=== PATIENT | male | born 1980 | race Caucasian/White ===

== ENCOUNTER 2017-06-03 11:53 | Emergency (ER) | payer BC ==
[2017-06-03 12:21] VITALS: BP 139/79
--- NOTE | 2017-06-03 12:56 | UC ---
[facility] HPI - History of Current Complaint Chief Complaint: UCDentalProblem Stated Complaint: DENTAL PAIN Time Seen by Provider: 06/03/17 12:48 - Allergies/Home Medications Allergies/Adverse Reactions: Allergies Allergy/AdvReac Type Severity Reaction Status Date / Time No Known Allergies Allergy Verified 06/03/17 12:21 Home Medications: Home Medications Omeprazole CAP* [Prilosec CAP* 20 MG] 20 mg PO DAILY 06/03/17 [History Confirmed 06/03/17] Sildenafil Citrate [Viagra] 100 mg PO DAILY PRN 06/03/17 [History Confirmed 06/09] PMH/Surg Hx/FS Hx/Imm Hx - Surgical History Surgical History: Yes Surgery Procedure, Year, and Place: 2010 2 impacted 3rd molars [place], shoulder surgery 4 years ago. - Family History Known Family History: Positive: None - Social History Alcohol Use: Rare Substance Use Type: None, Marijuana Smoking Status (MU): Former Smoker Physical Exam Vital Signs: Initial Vital Signs Temp 98.3 F 06/03/17 12:16 Pulse 65 06/03/17 12:16 Resp 16 06/03/17 12:16 BP 139/79 06/03/17 12:16 Pulse Ox 98 06/03/17 12:16 Discharge - Discharge Plan Referrals: Shola Lee MD [Primary Care Provider] -
== END 2017-06-03 13:09 | disposition home or self-care (01) ==
LOC: UCEAST 11:53
DX: K08.89 Other specified disorders of teeth and supporting structures (principal)
CPT/HCPCS: 99212; G0463

== ENCOUNTER 2018-01-07 11:13 | Emergency (ER) | payer BC ==
[2018-01-07] MEDS ORDERED: NS 0.9% 1000 ML* 2,000 ML IV ONE (15:24)
[2018-01-07 15:58] LABS: Urine Appearance Clear; Urine Blood 2+ (Negative); Urine Color Yellow; Urine Ketones Negative (Negative); Urine Protein Negative (Negative); Urine Red Blood Cell 3+(>10/hpf) (Absent); Urine Specific Gravity 1.016 (1.010-1.030); Urine Urobilinogen Negative (Negative); Urine White Blood Cell Trace(0-5/hpf) (Absent)
[2018-01-07 16:04] LABS: ABS Basophils 0.1 10^3/ul (0-0.2); ABS Eosinophils 0.3 10^3/ul (0-0.6); ABS Lymphocytes 3.1 10^3/ul (1.0-4.8); ABS Monocytes 0.5 10^3/ul (0-0.8); ABS Neutrophils 5.3 10^3/ul (1.5-7.7); ABS Nucleated RBC 0 10^3/ul; Eosinophil % 2.9 % (0-6); Hematocrit 44 % (42-52); Lymphocyte % 33.2 % (25-47); Mean Corpuscular HGB Conc 34 g/dl (31-36); Mean Corpuscular Hemoglobin 28 pg (27-31); Mean Corpuscular Volume 84 fL (80-94); Mean Platelet Volume 7.5 um3 (7.4-10.4); Nucleated Red Blood Cells % 0.1; Platelet Count 261 10^3/ul (150-450); Red Blood Count 5.28 10^6/ul (4.00-5.40); Red Cell Distribution Width 14 % (10.5-15); White Blood Count 9.2 10^3/ul (3.5-10.8)
[2018-01-07 16:13] LABS: INR 1.02 (0.77-1.02)
[2018-01-07 16:24] LABS: EGFR Non-African American 116.7 (>60)
--- NOTE | 2018-01-07 17:34 | ED ---
Back Pain - HPI Summary HPI Summary: Patient presents with right-sided flank pain that was a 9 out of 10 when he was sitting on his couch watching soccer earlier today. This pain moved from his flank around to his side and he had a "soreness" in his testicles. When it dulled somewhat he decided to drive to the hospital. He denies nausea, vomiting , diarrhea, dysuria, urinary urgency or frequency, hematuria. He does have a history of kidney stone and reports this feels same. He is here to be evaluated. - History of Current Complaint Chief Complaint: EDAbdPain Stated Complaint: FLANK PAIN Time Seen by Provider: 01/07/18 15:22 Hx Obtained From: Patient Pain Intensity: 3 - Allergies/Home Medications Allergies/Adverse Reactions: Allergies Allergy/AdvReac Type Severity Reaction Status Date / Time No Known Allergies Allergy Verified 01/07/18 11:22 PMH/Surg Hx/FS Hx/Imm Hx Previously Healthy: Yes Endocrine/Hematology History: Denies: Hx Diabetes, Hx Thyroid Disease Cardiovascular History: Denies: Hx Hypertension Respiratory History: Denies: Hx Asthma, Hx Chronic Obstructive Pulmonary Disease (COPD) GI History: Denies: Hx Ulcer History: Reports: Hx Kidney Stones - 06/2011 Sensory History: Reports: Hx Contacts or Glasses - inst glasses day of or inst given Denies: Hx Hearing Aid Opthamlomology History: Reports: Hx Contacts or Glasses - inst glasses day of or inst given - Surgical History Surgery Procedure, Year, and Place: 2010 2 impacted 3rd molars [place], shoulder surgery 4 years ago. Hx Anesthesia Reactions: No Infectious Disease History: Yes Infectious Disease History: Reports: Hx Tuberculosis Denies: Hx Clostridium Difficile, Hx Hepatitis, Hx Human Immunodeficiency Virus (HIV), Hx of Known/Suspected MRSA, Hx Shingles, Hx Known/Suspected VRE, History Other Infectious Disease, Traveled Outside the [place] in Last 30 Days - Family History Known Family History: Positive: None - Social History Occupation: Employed Full-time Lives: With Family Alcohol Use: Rare Substance Use Type: Reports: Marijuana Substance Use Comment - Amount & Last Used: 01/07/18 Hx Tobacco Use: Yes Smoking Status (MU): Current Some Day Smoker Review of Systems Constitutional: Negative Negative: Fever, Chills, Fatigue Gastrointestinal: Negative Positive: see HPI Musculoskeletal: Negative Skin: Negative Neurological: Negative Psychological: Normal All Other Systems Reviewed And Are Negative: Yes Physical Exam Triage Information Reviewed: Yes Vital Signs On Initial Exam: Initial Vitals Temp Pulse Resp BP Pulse Ox 98.2 F 63 16 137/81 94 01/07/18 11:18 01/07/18 11:18 01/07/18 11:18 01/07/18 11:18 01/07/18 11:18 Vital Signs Reviewed: Yes Appearance: Positive: Well-Appearing, No Pain Distress, Well-Nourished Skin: Positive: Warm, Skin Color Reflects Adequate Perfusion, Dry Head/Face: Positive: Normal Head/Face Inspection Eyes: Positive: EOMI ENT: Positive: Hearing grossly normal Respiratory/Lung Sounds: Positive: Clear to Auscultation, Breath Sounds Present Cardiovascular: Positive: Normal, RRR, Pulses are Symmetrical in both Upper and Lower Extremities Abdomen Description: Positive: Nontender, No Organomegaly, Soft. Negative: CVA Tenderness (R), CVA Tenderness (L) Bowel Sounds: Positive: Present Male Genital Exam: Positive: Normal Genitalia Musculoskeletal: Positive: Normal, Strength/ROM Intact Neurological: Positive: Normal, Sensory/Motor Intact, Alert, Oriented to Person Place, Time, CN Intact II-III Psychiatric: Positive: Normal Diagnostics - Vital Signs Vital Signs Temp Pulse Resp BP Pulse Ox 01/07/18 12:40 97.4 F 66 16 128/82 96 01/07/18 11:18 98.2 F 63 16 137/81 94 - Laboratory Lab Results: Lab Results 01/07/18 01/07/18 01/07/18 Range/Units 15:40 15:54 15:54 WBC 9.2 (3.5-10.8) 10^3/ul RBC 5.28 (4.00-5.40) 10^6/ul Hgb 15.0 (14.0-18.0) g/dl Hct 44 (42-52) % MCV 84 (80-94) fL MCH 28 (27-31) pg MCHC 34 (31-36) g/dl RDW 14 (10.5-15) % Plt Count 261 (150-450) 10^3/ul MPV 7.5 (7.4-10.4) um3 Neut % (Auto) 57.7 (38-83) % Lymph % (Auto) 33.2 (25-47) % Sampson % (Auto) 5.4 (0-7) % Eos % (Auto) 2.9 (0-6) % Baso % (Auto) 0.8 (0-2) % Absolute Neuts (auto) 5.3 (1.5-7.7) 10^3/ul Absolute Lymphs (auto) 3.1 (1.0-4.8) 10^3/ul Absolute Monos (auto) 0.5 (0-0.8) 10^3/ul Absolute Eos (auto) 0.3 (0-0.6) 10^3/ul Absolute Basos (auto) 0.1 (0-0.2) 10^3/ul Absolute Nucleated RBC 0 10^3/ul Nucleated RBC % 0.1 INR (Anticoag Therapy) 1.02 (0.77-1.02) APTT 30.3 (26.0-36.3) seconds Sodium (135-145) mmol/L Potassium (3.5-5.0) mmol/L Chloride (101-111) mmol/L Carbon Dioxide (22-32) mmol/L Anion Gap (2-11) mmol/L BUN (6-24) mg/dL Creatinine (0.67-1.17) mg/dL Est GFR ( Amer) (>60) Est GFR (Non-Af Amer) (>60) BUN/Creatinine Ratio (8-20) Glucose (70-100) mg/dL Lactic Acid (0.5-2.0) mmol/L Calcium (8.6-10.3) mg/dL Total Bilirubin (0.2-1.0) mg/dL AST (13-39) U/L ALT (7-52) U/L Alkaline Phosphatase (34-104) U/L C-Reactive Protein (< 5.00) mg/L Total Protein (6.4-8.9) g/dL Albumin (3.2-5.2) g/dL Globulin (2-4) g/dL Albumin/Globulin Ratio (1-3) Lipase (11.0-82.0) U/L Urine Color Yellow Urine Appearance Clear Urine pH 5.0 (5-9) Ur Specific Prole 1.016 (1.010-1.030) Urine Protein Negative (Negative) Urine Ketones Negative (Negative) Urine Blood 2+ A (Negative) Urine Nitrate Negative (Negative) Urine Bilirubin Negative (Negative) Urine Urobilinogen Negative (Negative) Ur Leukocyte Esterase Negative (Negative) Urine WBC (Auto) Trace(0-5/hpf) (Absent) Urine RBC (Auto) 3+(>10/hpf) A (Absent) Ur Squamous Epith Cells Present A (Absent) Urine Bacteria Absent (Absent) Urine Glucose Negative (Negative) 01/07/18 01/07/18 Range/Units 15:54 15:54 WBC (3.5-10.8) 10^3/ul RBC (4.00-5.40) 10^6/ul Hgb (14.0-18.0) g/dl Hct (42-52) % MCV (80-94) fL MCH (27-31) pg MCHC (31-36) g/dl RDW (10.5-15) % Plt Count (150-450) 10^3/ul MPV (7.4-10.4) um3 Neut % (Auto) (38-83) % Lymph % (Auto) (25-47) % Sampson % (Auto) (0-7) % Eos % (Auto) (0-6) % Baso % (Auto) (0-2) % Absolute Neuts (auto) (1.5-7.7) 10^3/ul Absolute Lymphs (auto) (1.0-4.8) 10^3/ul Absolute Monos (auto) (0-0.8) 10^3/ul Absolute Eos (auto) (0-0.6) 10^3/ul Absolute Basos (auto) (0-0.2) 10^3/ul Absolute Nucleated RBC 10^3/ul Nucleated RBC % INR (Anticoag Therapy) (0.77-1.02) APTT (26.0-36.3) seconds Sodium 140 (135-145) mmol/L Potassium 3.4 L (3.5-5.0) mmol/L Chloride 105 (101-111) mmol/L Carbon Dioxide 27 (22-32) mmol/L Anion Gap 8 (2-11) mmol/L BUN 11 (6-24) mg/dL Creatinine 0.76 (0.67-1.17) mg/dL Est GFR ( Amer) 150.1 (>60) Est GFR (Non-Af Amer) 116.7 (>60) BUN/Creatinine Ratio 14.5 (8-20) Glucose 90 (70-100) mg/dL Lactic Acid 1.0 (0.5-2.0) mmol/L Calcium 9.0 (8.6-10.3) mg/dL Total Bilirubin 0.40 (0.2-1.0) mg/dL AST 15 (13-39) U/L ALT 22 (7-52) U/L Alkaline Phosphatase 63 (34-104) U/L C-Reactive Protein < 1.00 (< 5.00) mg/L Total Protein 6.8 (6.4-8.9) g/dL Albumin 3.9 (3.2-5.2) g/dL Globulin 2.9 (2-4) g/dL Albumin/Globulin Ratio 1.3 (1-3) Lipase 12 (11.0-82.0) U/L Urine Color Urine Appearance Urine pH (5-9) Ur Specific Prole (1.010-1.030) Urine Protein (Negative) Urine Ketones (Negative) Urine Blood (Negative) Urine Nitrate (Negative) Urine Bilirubin (Negative) Urine Urobilinogen (Negative) Ur Leukocyte Esterase (Negative) Urine WBC (Auto) (Absent) Urine RBC (Auto) (Absent) Ur Squamous Epith Cells (Absent) Urine Bacteria (Absent) Urine Glucose (Negative) Result Diagrams: 01/07/18 15:54 01/07/18 15:54 Lab Statement: Any lab studies that have been ordered have been reviewed, and results considered in the medical decision making process. Back Pain Course/Dx - Course Course Of Treatment: Labs and clinical presentation appears well except for hemturia on U/A which could indicate urinary tract stone. Discussed options for further testing w/ pt as he is quite comfortbale and has been for hours now since onset. He opted for CT ab/pelvis - results pending at time of sign out to Azalia Izaguirre PA-C. Pt reports 1/10 pain and no pain meds ordered. He is table and comfortable at transition of care. - Diagnoses Provider Diagnoses: Ureteral calculi Discharge - Sign-Out/Discharge Documenting (check all that apply): Discharge/Admit/Transfer - Discharge Plan Condition: Good Disposition: HOME Prescriptions: oxyCODONE/Acetamin 5/325 MG* [Percocet 5/325 TAB*] 1 tab PO Q6H PRN #16 tab MDD 4 PRN Reason: Pain Tamsulosin CAP* [Flomax CAP*] 0.4 mg PO DAILY #7 cap Patient Education Materials: Ureteral Stones (ED) Referrals: Shola Lee MD [Primary Care Provider] - Stuart Cowan MD [Medical Doctor] - Additional Instructions: Take ibuprofen every 6 hours and narcotic as needed every 6 hours Take Flomax daily starting tomorrow, first dose given in ED until stone expelled , make sure stand up slowly Follow up with urology, call office tomorrow for appointment Strain urine until collect stone Return to ED if unable to manage pain at home, develop fever, or any new or worsening symptoms - Billing Disposition and Condition Condition: GOOD Disposition: Home
--- NOTE | 2018-01-07 17:44 | RAD ---
CLINICAL HISTORY: Rt flank pain -h/o stone COMPARISON: April 10, 2013 TECHNIQUE: Multiple contiguous axial CT scans were obtained of the abdomen and pelvis, without intravenous contrast enhancement. Coronal and sagittal multiplanar reformations are submitted for review. Oral contrast was not administered. FINDINGS: The study is limited by the lack of intravenous contrast. This limits evaluation of the solid organs and vasculature. LUNG BASES: The lung bases are clear. LIVER: There are low-attenuation hepatic parenchymal lesions most consistent with hepatic cysts. These are stable from the previous examination. BILE DUCTS: There is no intrahepatic or extrahepatic biliary dilatation. GALLBLADDER: The gallbladder is normal, without pericholecystic inflammatory change. PANCREAS: The pancreas is normal, without mass or ductal dilatation. SPLEEN: Normal in size and appearance. UPPER GI TRACT: Evaluation of the gastrointestinal tract is limited by incomplete gastric distention. The upper GI tract is unremarkable. SMALL BOWEL AND MESENTERY: The small bowel is normal in contour, course, and caliber. There is no obstruction or dilatation. COLON: The colon is normal in contour, course, caliber. There is no pericolonic inflammatory change. There is a tubular, vermiform, hollow viscus that is blind ending, and originates from the cecum, consistent with a normal appendix. There is no periappendiceal inflammatory change. This is best seen on axial images 103 through 113. ADRENALS: Normal bilaterally. KIDNEYS: There are punctate renal calyceal stones bilaterally. There is a 0.2 cm calculus of the right mid ureter, without appreciable hydronephrosis. BLADDER: The bladder is smooth in contour. PELVIC ORGANS: The prostate gland is normal. The seminal vesicles are symmetric. AORTA: The aorta is normal. IVC: Unremarkable LYMPH NODES: There is no lymphadenopathy by size criteria. ABDOMINAL WALL: There is no evidence for abdominal wall hernia. BONES AND SOFT TISSUES: There are mild diffuse degenerative changes. OTHER: None IMPRESSION: BILATERAL NEPHROLITHIASIS INCLUDING A PUNCTATE RIGHT URETERAL STONE WITHOUT APPRECIABLE HYDRONEPHROSIS.
[2018-01-07] MEDS ORDERED: Tamsulosin CAP* 0.4 MG PO ONE (18:19)
[2018-01-07] MEDS ORDERED: Ketorolac INJ* 30 MG/ML 1 ML VIAL IV PUSH ONE (18:19)
--- NOTE | 2018-01-07 18:19 | ED ---
Progress - Progress Note Progress Note: Patient signed out by Lashay pending CT CT: IMPRESSION: BILATERAL NEPHROLITHIASIS INCLUDING A PUNCTATE RIGHT URETERAL STONE WITHOUT APPRECIABLE HYDRONEPHROSIS. Discussed results with patient. Patient declined pain medication this time but will send a prescription the pharmacy. Will place on Flomax. Patient understands agrees with plan. Course/Dx - Course Course Of Treatment: Patient CT showed uterine calculi. Gave dosed Toradol and Flomax here. We'll send for Flomax and Percocet to the pharmacy as needed. We' ll have follow-up with urology. Patient understands agrees with plan. - Diagnoses Provider Diagnoses: Ureteral calculi Discharge - Sign-Out/Discharge Documenting (check all that apply): Receiving Sign-Out Receiving patient FROM: Lashay Tinajero - Discharge Plan Condition: Good Disposition: HOME Prescriptions: oxyCODONE/Acetamin 5/325 MG* [Percocet 5/325 TAB*] 1 tab PO Q6H PRN #16 tab MDD 4 PRN Reason: Pain Tamsulosin CAP* [Flomax CAP*] 0.4 mg PO DAILY #7 cap Patient Education Materials: Ureteral Stones (ED) Referrals: Shola Lee MD [Primary Care Provider] - Stuart Cowan MD [Medical Doctor] - Additional Instructions: Take ibuprofen every 6 hours and narcotic as needed every 6 hours Take Flomax daily starting tomorrow, first dose given in ED until stone expelled , make sure stand up slowly Follow up with urology, call office tomorrow for appointment Strain urine until collect stone Return to ED if unable to manage pain at home, develop fever, or any new or worsening symptoms - Billing Disposition and Condition Condition: GOOD Disposition: Home
[2018-01-07 18:59] VITALS: BP 117/62
== END 2018-01-07 18:58 | disposition home or self-care (01) ==
LOC: ED 11:13
DX: N20.2 Calculus of kidney with calculus of ureter (principal); F17.200 Nicotine dependence, unspecified, uncomplicated; Z87.442 Personal history of urinary calculi; Z86.11 Personal history of tuberculosis
CPT/HCPCS: 36415; 74176; 80053; 81003; 81015; 83605; 83690; 85025; 85610; 85730; 86140; 87086; 96374; 99283; J1885

== ENCOUNTER 2018-12-12 06:20 | Day surgery (SDC) | payer BC ==
[~2018-12-12 06:20] MED LIST: Buffered Lidocaine 1% SYRIN* 1 ML/SYRINGE INTRADERM ONE; Lactated Ringers 1000 ML Bag* 1,000 ML IV SCH
[2018-12-12] MEDS ORDERED: Buffered Lidocaine 1% SYRIN* 1 ML/SYRINGE INTRADERM ONE (06:45)
[2018-12-12] MEDS ORDERED: ceFAZolin 2 GM PREMIX in ORs 2 GM/50 ML BAG IVPB ONE (06:45)
[2018-12-12] MEDS ORDERED: Lidocaine 2% PF * 5 ML VIAL ONE (07:07)
[2018-12-12] MEDS ORDERED: Propofol* 10 MG/ML 20 ML BTL ONE ×2 (07:07→07:10)
[2018-12-12] MEDS ORDERED: Succinylcholine* 20 MG/ML 10 ML VIAL ONE (07:08)
[2018-12-12] MEDS ORDERED: EPINEPHRINE 1 MG/ML 1 ML VIAL ONE (07:19)
[2018-12-12] MEDS ORDERED: Dexmedetomidine* 200 MCG/2 ML 2 ML VIAL ONE (08:15)
[2018-12-12] MEDS ORDERED: ROPIVACAINE 5 MG/ML 30 ML BTL (0.5%) ONE (08:15)
[2018-12-12] MEDS ORDERED: Midazolam* 1 MG/ML 2 ML VIAL (2 MG) ONE (08:15)
[2018-12-12] MEDS ORDERED: Lidocaine 1% INJ* 10 MG/ML 30 ML SDV ONE (08:19)
[2018-12-12] MEDS ORDERED: Rocuronium* 10 MG/ML VIAL ONE (08:39)
[2018-12-12] MEDS ORDERED: Dexamethasone IV* 4 MG/ML 1 ML (4 MG) ONE (08:46)
[2018-12-12] MEDS ORDERED: DiMENhydriNATE IV* 50 MG/ML VIAL IV PUSH PRN (09:23)
[2018-12-12] MEDS ORDERED: HYDROmorphone INJ1* 1 MG/ML SYRINGE IV PRN (09:23)
[2018-12-12] MEDS ORDERED: Naloxone* 0.4 MG/ML 1 ML VIAL IV PRN (09:23)
[2018-12-12] MEDS ORDERED: fentaNYL* 50 MCG/ML 2 ML VIAL (100 MCG VIAL) ONE (09:32)
[2018-12-12] MEDS ORDERED: oxyCODONE TAB* 5 MG TAB ONE ×2 (11:08→11:29)
[2018-12-12] MEDS: oxyCODONE TAB* 5 MG TAB PO PRN ×2 (11:09→11:29)
[2018-12-12 12:06] VITALS: BP 125/80
--- NOTE | 2018-12-12 22:24 | OP ---
OPERATIVE REPORT: DATE OF OPERATION: 12/12/18 DATE OF : 84 SURGEON: Carlo Byrd MD INFORMATION TECHNOLOGY OFFICER: SABA Hagen A physician anesthesiologist assistant certified was required for the length of the procedure for help with patient positioning, instrumentation, and closure. ANESTHESIOLOGIST: Dr. Lyla Braga. ANESTHESIA: General anesthesia, regional interscalene block anesthesia, and local anesthesia with 10 cc of 0.5% Marcaine with epinephrine placed in the open incision site. PRE-OP DIAGNOSES: 1. Right shoulder superior labrum and posterior labrum tears. 2. Right shoulder subacromial impingement and bursitis. POST-OP DIAGNOSES: 1. Right shoulder superior labrum and posterior labrum tears. 2. Right shoulder subacromial impingement and bursitis. 3. Right shoulder rotator cuff, supraspinatus, articular side fraying, very minimal, consistent with tendinitis. OPERATIVE PROCEDURE: 1. Right shoulder arthroscopic posterior labrum repair, 2 anchors. 2. Right shoulder arthroscopic limited debridement, undersurface supraspinatus, release of biceps te ndon, subacromial bursectomy. 3. Right shoulder open proximal biceps tenodesis, subpectoral. ANTIBIOTICS: Ancef 2 g IV. IV FLUIDS: See Anesthesia note. [id number] TIME: 93 minutes. ARTHROSCOPIC FLUID UTILIZED: Not recorded. SPECIMEN: None. IMPLANTS: Mitek Gryphon suture anchors x2. Arthrex proximal biceps unicortical button x1. COMPLICATIONS: None. ESTIMATED BLOOD LOSS: Minimal. 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 He was treated with physical therapy, oral narc otics, cortisone subacromial injection, without any relief whatsoever. The patient was using a sling because his shoulder was so painful. The patient had had treatment by Dr. Mullins in 2011 and 2012 for similar injury. The patient had an arthroscopic subacromial decompression at that time. Preoperative MRI had shown a posterior labrum te ar, but this was not found intraoperatively. The patient recovered fully after that surgery and had been fine until the recent fall. The patient's exam was consistent with a symptomatic labrum tear as well as symptomatic subacromial b ursitis with possibly some rotator cuff tendinitis. The patient opted for surgery. Discussed risks and potential complications. DESCRIPTION OF PROCEDURE: In preoperative holding, the patient signed a written consent. Operative extremity was marked in preoperative holding. The patient underwent regional interscalene block in p reoperative holding. The patient went back to the operating room and placed supine on operating room table. Sedated and i ntubated. Transferred into the lateral decubitus position with the right shoulder up. Prepped and d raped. Surgical time-out performed. 30 cc normal saline infused into the glenohumeral joint from posterior. Established posterior glenohu meral joint portal using standard technique. Started diagnostic arthroscopy. Superior labrum was concerning for a tear. Established anterior taylor ohumeral joint portal under direct visualization. First used a probe to lift up the superior labrum and appreciate the tear and its instability. There fore, decided to release the biceps tendon. Brought an arthroscopic scissors from anterior and used it to cut the biceps right off of its origin. It retracted. No humeral head articular cartilage damage. The posterior labrum was pretty redundant, and large. I could not see any articular cartilage damage or labrum tear at first. I smoothed back some of the e xtra, frayed, posterior labrum using an arthroscopic shaver. This allowed better visualization of th e labral attachment to glenoid as well as the posterior margin of glenoid articular cartilage. Viewing from posterior and also viewing from anterior, I appreciated that there was a posterior labru m tear that ran from approximately 7:30 o'clock to 10 o'clock. With a grasper, I was able to lift the labrum off of glenoid. There was also some diseased articular cartilage along the posterior margin, consistent with some posterior subluxation incidence, likely that the patient had experienced. At this point, I decided to proceed forward with a posterior labrum repair and make the appropriate p ortals for this. I should state that prior this, I evaluated the undersurface of the supraspinatus tendon. Of all the visible rotator cuff tendon, this was the only one with some abnormality. There was some frayed tis renato. No clear tear, but some disruption of fibers. I used a spinal needle brought in from the outsi de to get a feel for the thickness of the tendon in this location and it felt robust. I just briefly moved my shaver close to herein smooth that out, but there was no significant loss of integrity at r otator cuff. Really no even low-grade partial thickness tear to speak of. I next established my portals to perform a posterior labral repair. I placed the Brady and Nephew la teral sincere in place. I established anteroinferior and then anterosuperior portals. Viewing through the anterosuperior portal, I prepared the glenoid, and mobilized the labrum. I then used percutaneous stab incisions and to place 2 posterior anchors, first more posteroinferiorl y and then the second one more posteriorly or posterosuperiorly. Each started out double loaded, but I removed one suture from each. I used an ideal suture passer from [employer], retrograde passer to pass one horizontal mattress stitch with the suture from each anchor. The first anchor posteroinferiorly , I grabbed both capsule and labrum. The second more superior anchor, I grabbed mostly just labrum. This brought labrum nicely opposed to a bone. I liked how stable the repair was to probing. I removed all instruments and fluids from glenohumeral joint. Moved to the subacromial space. In th e subacromial space, I spent some time debriding bursitic tissue with an arthroscopic shaver. I then extensively probed and visualized the rotator cuff and found no bursal sided tear. I then used an arthroscopic shaver, from lateral, to smooth out the anterior curve of the acromion. Established lateral and posterolateral portals under direct visualization to help me accomplish this. Fluid and instruments were removed from the subacromial space. Closed skin incisions with figure-of- eight in 12 stitches using nylon 3-0 suture. Rogers bag was partially softened and the patient was transferred into a lazy supine lateral position. I made a short anteromedial upper arm longitudinal skin incision. Dissected down the bicipital groov e. Removed the long head of biceps tendon. Placed retractors. Used a Bovie and periosteal elevator to prepare the bicipital groove bone. I placed a Beath pin unicortically. Took the long head of the biceps tendon and placed 3 stitches using a FiberLoop suture and then loade d a unicortical button. I placed this button in the humerus and flipped it. Tied a knot. Used a fr ee needle and a deep pickup to then tie an additional knot. Irrigation. Closure of the subcutaneous tissue with buried simple stitches using Vicryl 3-0 suture. Closure of the subcuticular layer with a running stitch using Monocryl 4-0 suture. Mastisol and then Steri-Strips. A local anesthesia was placed around this injection using 10 cc of Marcaine 0.5% with epinephrine. I placed a 4x4 and then a Tegaderm over the anterior incision. Over the other incisions, we placed Xer oform, 4x4s, ABDs, foam tape. The patient was placed into a sling and abduction pillow. The patient was awakened and extubated and transferred to the PACU. DISPOSITION: The patient was discharged home with Percocet to take as need ed for pain. Wound care instructions. The patient will start physical therapy immediately according to my labrum repair protocol. He will follow up with me in 10 to 14 days postoperatively in clinic. [id number]/[facility] #: [id number]
== END 2018-12-12 12:23 | disposition home or self-care (01) ==
LOC: OR 06:20
PROVIDERS: ATTEND Orthopaedic Surgery
DX: S43.431A Superior glenoid labrum lesion of right shoulder, initial encounter (principal); S43.491A Other sprain of right shoulder joint, initial encounter; M75.41 Impingement syndrome of right shoulder; M75.51 Bursitis of right shoulder; M75.21 Bicipital tendinitis, right shoulder; G89.18 Other acute postprocedural pain; Z72.0 Tobacco use; W19.XXXA Unspecified fall, initial encounter; Y92.9 Unspecified place or not applicable; K21.9 Gastro-esophageal reflux disease without esophagitis
CPT/HCPCS: A9270-GY; C1776; J0330; J0690; J1100; J2250; J2704; J2795; J3010